=== PATIENT | female | born 1995 | race American Indian/Alaskan Native ===

== ENCOUNTER 2019-02-05 12:25 | Emergency (ER) | payer MEDICAID ==
--- NOTE | 2019-02-05 13:12 | Emergency Department Report ---
ED Female HPI - General Chief complaint: Vaginal Bleeding Stated complaint: VAGINAL BLEEDING Time Seen by Provider: 02/05/19 12:45 Source: patient Mode of arrival: Ambulatory Limitations: No Limitations - History of Present Illness Initial comments: 23-year-old female who presents to ED with vaginal bleeding that began last night. Patient states that she noticed large clots of blood that started last night. Patient states that she is not on any medication or contraceptive method. Patient states that her last menstrual cycle 01/14/2019. She states she usually gets normal menstrual cycle once a month. It has been very regular to bleeding started yesterday. She denies abdominal pain or pelvic pain, vaginal discharge, dysuria or nausea vomiting or diarrhea. MD Complaint: vaginal bleeding - Related Data Home Medications Medication Instructions Recorded Confirmed Last Taken No Known Home Medications [No 02/05/19 02/05/19 Unknown Reported Home Medications] Allergies Allergy/AdvReac Type Severity Reaction Status Date / Time No Known Allergies Allergy Unverified 02/05/19 12:27 ED Review of Systems ROS: Stated complaint: VAGINAL BLEEDING Other details as noted in HPI Comment: All other systems reviewed and negative ED Past Medical Hx - Past Medical History Previous Medical History?: Yes Hx Hypertension: Yes Additional medical history: Obesity - Surgical History Past Surgical History?: No - Social History Smoking Status: Current Every Day Smoker Substance Use Type: Marijuana - Medications Home Medications: Home Medications Medication Instructions Recorded Confirmed Last Taken Type No Known Home Medications [No 02/05/19 02/05/19 Unknown History Reported Home Medications] ED Physical Exam - General Limitations: No Limitations General appearance: alert, in no apparent distress - Head Head exam: Present: atraumatic, normocephalic - Eye Eye exam: Present: normal appearance - ENT ENT exam: Present: mucous membranes moist - Neck Neck exam: Present: normal inspection - Respiratory Respiratory exam: Present: normal lung sounds bilaterally. Absent: respiratory distress - Cardiovascular Cardiovascular Exam: Present: regular rate, normal rhythm. Absent: systolic murmur, diastolic murmur, rubs, gallop - GI/Abdominal GI/Abdominal exam: Present: soft, normal bowel sounds. Absent: distended, tenderness, guarding, rebound, mass, bruit - Extremities Exam Extremities exam: Present: normal inspection - Back Exam Back exam: Present: normal inspection - Neurological Exam Neurological exam: Present: alert, oriented X3 - Psychiatric Psychiatric exam: Present: normal affect, normal mood - Skin Skin exam: Present: warm, dry, intact, normal color. Absent: rash ED Course Vital Signs 02/05/19 02/05/19 02/05/19 12:27 15:00 15:20 Temperature 98.5 F Pulse Rate 96 H 88 Respiratory 18 18 18 Rate Blood Pressure 166/103 Blood Pressure 154/86 [Left] O2 Sat by Pulse 97 98 98 Oximetry ED Medical Decision Making - Lab Data Result diagrams: 02/05/19 13:15 Laboratory Last Values WBC 5.6 K/mm3 (4.5-11.0) 02/05/19 13:15 RBC 3.96 M/mm3 (3.65-5.03) 02/05/19 13:15 Hgb 11.3 gm/dl (10.1-14.3) 02/05/19 13:15 Hct 33.3 % (30.3-42.9) 02/05/19 13:15 MCV 84 fl (79-97) 02/05/19 13:15 MCH 29 pg (28-32) 02/05/19 13:15 MCHC 34 % (30-34) 02/05/19 13:15 RDW 14.8 % (13.2-15.2) 02/05/19 13:15 Plt Count 432 K/mm3 (140-440) 02/05/19 13:15 Lymph % (Auto) 39.2 % (13.4-35.0) H 02/05/19 13:15 [place] % (Auto) 10.4 % (0.0-7.3) H 02/05/19 13:15 Eos % (Auto) 3.1 % (0.0-4.3) 02/05/19 13:15 Baso % (Auto) 0.4 % (0.0-1.8) 02/05/19 13:15 Lymph # 2.2 K/mm3 (1.2-5.4) 02/05/19 13:15 [place] # 0.6 K/mm3 (0.0-0.8) 02/05/19 13:15 Eos # 0.2 K/mm3 (0.0-0.4) 02/05/19 13:15 Baso # 0.0 K/mm3 (0.0-0.1) 02/05/19 13:15 Seg Neutrophils % 46.9 % (40.0-70.0) 02/05/19 13:15 Seg Neutrophils # 2.6 K/mm3 (1.8-7.7) 02/05/19 13:15 HCG, Quant 469.3 mIU/mL (0-4) H 02/05/19 13:15 Urine Color Yellow (Yellow) 02/05/19 13:50 Urine Turbidity Slightly-cloudy (Clear) 02/05/19 13:50 Urine pH 5.0 (5.0-7.0) 02/05/19 13:50 Ur Specific [place] 1.023 (1.003-1.030) 02/05/19 13:50 Urine Protein <15 mg/dl mg/dL (Negative) 02/05/19 13:50 Urine Glucose (UA) Neg mg/dL (Negative) 02/05/19 13:50 Urine Ketones Neg mg/dL (Negative) 02/05/19 13:50 Urine Blood Lg (Negative) 02/05/19 13:50 Urine Nitrite Neg (Negative) 02/05/19 13:50 Urine Bilirubin Neg (Negative) 02/05/19 13:50 Urine Urobilinogen < 2.0 mg/dL (<2.0) 02/05/19 13:50 Ur Leukocyte Esterase Tr (Negative) 02/05/19 13:50 Urine WBC (Auto) 4.0 /HPF (0.0-6.0) 02/05/19 13:50 Urine RBC (Auto) 29.0 /HPF (0.0-6.0) 02/05/19 13:50 U Epithel Cells (Auto) 13.0 /HPF (0-13.0) 02/05/19 13:50 Urine Mucus Few /HPF 02/05/19 13:50 - Medical Decision Making 23-year-old female presents with vaginal bleeding with positive test. CBC within normal limits, quantitative 493. urinalysis is negative Discussed all findings with the patient. Discussed the patient is status very early and could be a failed . Discussed with the patient to follow-up with [facility] in 2-3 days for repeat quantitative. Patient has a nontender abdomen a pelvic. Discussed follow-up in 2-3 days Patient understands instructions and states the compliance. Critical care attestation.: If time is entered above; I have spent that time in minutes in the direct care of this critically ill patient, excluding procedure time. ED Disposition Clinical Impression: Vaginal bleeding, Positive blood test Disposition: TO HOME OR SELFCARE Is pt being admited?: No Does the pt Need Aspirin: No Condition: Stable Instructions: Spontaneous Miscarriage (ED), Threatened Miscarriage (ED) Additional Instructions: Make sure to follow up with the primary care physician as discussed. Oh up with [facility] as referred and 2-3 days for repeat blood test If you have any worsening symptoms or develop new symptoms please return to ED immediately. Referrals: [facility] [Provider Group] - 3-5 Days [facility] [Provider Group] - 3-5 Days [facility] [Provider Group] - 3-5 Days Forms: Work/School Release Form(ED) Time of Disposition: 14:42
[2019-02-05 14:02] LABS: Basophils % (Auto) 0.4 % (0.0-1.8); Eosinophils # (Auto) 0.2 K/mm3 (0.0-0.4); Eosinophils % (Auto) 3.1 % (0.0-4.3); Hematocrit 33.3 % (30.3-42.9); Hemoglobin 11.3 gm/dl (10.1-14.3); Lymphocytes # (Auto) 2.2 K/mm3 (1.2-5.4); Lymphocytes % (Auto) 39.2 % (13.4-35.0); Mean Corpuscular HGB Conc 34 % (30-34); Mean Corpuscular Volume 84 fl (79-97); Monocytes # (Auto) 0.6 K/mm3 (0.0-0.8); Monocytes % (Auto) 10.4 % (0.0-7.3); Platelet Count 432 K/mm3 (140-440); Red Blood Count 3.96 M/mm3 (3.65-5.03); Red Cell Distribution Width 14.8 % (13.2-15.2)
[2019-02-05 14:21] LABS: Bilirubin,Urine NEG (Negative); Blood,Urine LG (Negative); Color,Urine Yellow (Yellow); Mucus,Urine FEW /HPF; Protein,Urine <15 mg/dL mg/dL (Negative); Urobilinogen,Urine < 2.0 mg/dL (<2.0)
[2019-02-05 15:31] VITALS: BP 154/86
== END 2019-02-05 15:30 | disposition home or self-care (01) ==
LOC: ED 12:25
DX: Z32.01 Encounter for pregnancy test, result positive (principal); I10 Essential (primary) hypertension; F17.200 Nicotine dependence, unspecified, uncomplicated; F12.10 Cannabis abuse, uncomplicated
CPT/HCPCS: 36415; 81001; 84702; 85025; 99283

== ENCOUNTER 2019-09-07 15:45 | Emergency (ER) | payer MEDICAID ==
[2019-09-07 16:21] LABS: Bilirubin,Urine NEG (Negative); Blood,Urine NEG (Negative); Color,Urine Yellow (Yellow); HCG Qualitative,Urine Negative (Negative); Mucus,Urine FEW /HPF; Protein,Urine <15 mg/dL mg/dL (Negative); Urobilinogen,Urine < 2.0 mg/dL (<2.0)
[2019-09-07] MEDS ORDERED: IBUPROFEN 800 MG TAB PO ONE (19:30)
[2019-09-07] MEDS ORDERED: ONDANSETRON 4 MG ODT TAB PO ONE (19:30)
[2019-09-07 19:33] VITALS: BP 147/75
--- NOTE | 2019-09-07 20:21 | Emergency Department Report ---
ED Abdominal Pain HPI - General Chief Complaint: Abdominal Pain Stated Complaint: FEEL LIGHTHEADED Time Seen by Provider: 09/07/19 19:25 Source: patient Mode of arrival: Ambulatory Limitations: No Limitations - History of Present Illness Initial Comments: Ms. Mckeon is a 24-year-old -Mal[place]ian female who presents with left lower quadrant abdominal pain for over today. Pain described at 5/10 sharp achy. Pain is exacerbated by palpation and movement. There is no fever no chills. She states some nausea no vomiting. No back pain, no dysuria, no vaginal discharge, no vaginal bleeding. Patient denies fall ,injury ,or trauma. She is tolerating p.o. intake without increasing symptoms. MD Complaint: abdominal pain Onset/Timin -: hour(s) Location: LLQ Radiation: LLQ Severity scale (0 -10): 6 Quality: aching, sharp Consistency: constant Improves With: nothing Worsens With: movement Associated Symptoms: nausea. denies: vomiting, diarrhea, fever, chills, constipation - Related Data LMP Date: 08/07/19 Previous Rx's Medication Instructions Recorded Last Taken Type bisacodyL [Dulcolax suppos] 10 mg TX ONCE PRN #5 supp.rect 09/07/19 Unknown Rx polyethylene glycoL 3350 [Miralax 17 gm PO BID PRN #14 packet 09/07/19 Unknown Rx 3350] Allergies Allergy/AdvReac Type Severity Reaction Status Date / Time latex Allergy Hives Verified 09/07/19 15:49 ED Review of Systems ROS: Stated complaint: FEEL LIGHTHEADED Other details as noted in HPI Constitutional: denies: chills, fever Eyes: denies: eye pain, eye discharge, vision change ENT: denies: ear pain, throat pain Respiratory: denies: cough, shortness of breath, wheezing Cardiovascular: as per HPI Endocrine: no symptoms reported Gastrointestinal: abdominal pain, nausea. denies: vomiting, diarrhea, constipation, melena Genitourinary: denies: urgency, dysuria, frequency, hematuria, discharge Musculoskeletal: denies: back pain Skin: denies: rash, lesions Neurological: denies: headache, weakness, paresthesias Psychiatric: denies: anxiety, depression Hematological/Lymphatic: denies: easy bleeding, easy bruising ED Past Medical Hx - Past Medical History Hx Hypertension: Yes Additional medical history: Obesity - Surgical History Past Surgical History?: No - Social History Smoking Status: Never Smoker Substance Use Type: None - Medications Home Medications: Home Medications Medication Instructions Recorded Confirmed Last Taken Type bisacodyL [Dulcolax suppos] 10 mg TX ONCE PRN #5 supp.rect 09/07/19 Unknown Rx polyethylene glycoL 3350 [Miralax 17 gm PO BID PRN #14 packet 09/07/19 Unknown Rx 3350] ED Physical Exam - General Limitations: No Limitations General appearance: alert, in no apparent distress - Head Head exam: Present: atraumatic, normocephalic - Eye Eye exam: Present: normal appearance, EOMI Pupils: Present: normal accommodation - ENT ENT exam: Present: mucous membranes moist - Neck Neck exam: Present: normal inspection, full ROM. Absent: tenderness - Respiratory Respiratory exam: Present: normal lung sounds bilaterally. Absent: respiratory distress, wheezes, stridor, chest wall tenderness - Cardiovascular Cardiovascular Exam: Present: regular rate, normal rhythm, normal heart sounds. Absent: systolic murmur, diastolic murmur, rubs, gallop - GI/Abdominal GI/Abdominal exam: Present: soft, tenderness (LLQ ), normal bowel sounds. Absent: guarding, rebound, rigid, bruit, hernia - Rectal Rectal exam: Present: deferred - Extremities Exam Extremities exam: Present: normal inspection, full ROM, normal capillary refill. Absent: tenderness - Back Exam Back exam: Present: normal inspection, full ROM. Absent: tenderness, CVA tender ness (R), CVA tenderness (L), vertebral tenderness, rash noted - Neurological Exam Neurological exam: Present: alert, oriented X3, CN II-XII intact, normal gait - Psychiatric Psychiatric exam: Present: normal affect, normal mood - Skin Skin exam: Present: warm, dry, intact, normal color. Absent: rash ED Course Vital Signs 09/07/19 09/07/19 15:50 19:31 Temperature 98.3 F Pulse Rate 102 H 95 H Respiratory 18 18 Rate Blood Pressure 160/103 147/75 O2 Sat by Pulse 100 100 Oximetry ED Medical Decision Making - Lab Data Result diagrams: 09/07/19 19:45 09/07/19 19:45 Labs 09/07/19 09/07/19 09/07/19 16:02 19:45 19:45 WBC 6.5 RBC 4.28 Hgb 11.6 Hct 35.4 MCV 83 MCH 27 L MCHC 33 RDW 14.5 Plt Count 431 Lymph % (Auto) 42.8 H [place] % (Auto) 12.1 H Eos % (Auto) 2.4 Baso % (Auto) 0.2 Lymph # 2.8 [place] # 0.8 Eos # 0.2 Baso # 0.0 Seg Neutrophils % 42.5 Seg Neutrophils # 2.8 Sodium 141 Potassium 4.2 Chloride 103.9 Carbon Dioxide 22 Anion Gap 19 BUN 9 Creatinine 0.4 L Estimated GFR > 60 BUN/Creatinine Ratio 23 Glucose 92 Calcium 9.5 Total Bilirubin < 0.20 AST 19 ALT 8 Alkaline Phosphatase 65 Total Protein 7.5 Albumin 4.0 Albumin/Globulin Ratio 1.1 Lipase 18 HCG, Qual Urine Color Yellow Urine Turbidity Clear Urine pH 6.0 Ur Specific [place] 1.024 Urine Protein <15 mg/dl Urine Glucose (UA) Neg Urine Ketones Neg Urine Blood Neg Urine Nitrite Neg Ur Reducing Substances Not Reportable Urine Bilirubin Neg Urine Ictotest Not Reportable Urine Urobilinogen < 2.0 Ur Leukocyte Esterase Tr Urine WBC (Auto) 3.0 Urine RBC (Auto) 1.0 U Epithel Cells (Auto) 8.0 Urine Mucus Few Urine HCG, Qual Negative 09/07/19 19:45 WBC RBC Hgb Hct MCV MCH MCHC RDW Plt Count Lymph % (Auto) [place] % (Auto) Eos % (Auto) Baso % (Auto) Lymph # [place] # Eos # Baso # Seg Neutrophils % Seg Neutrophils # Sodium Potassium Chloride Carbon Dioxide Anion Gap BUN Creatinine Estimated GFR BUN/Creatinine Ratio Glucose Calcium Total Bilirubin AST ALT Alkaline Phosphatase Total Protein Albumin Albumin/Globulin Ratio Lipase HCG, Qual Negative Urine Color Urine Turbidity Urine pH Ur Specific [place] Urine Protein Urine Glucose (UA) Urine Ketones Urine Blood Urine Nitrite Ur Reducing Substances Urine Bilirubin Urine Ictotest Urine Urobilinogen Ur Leukocyte Esterase Urine WBC (Auto) Urine RBC (Auto) U Epithel Cells (Auto) Urine Mucus Urine HCG, Qual - Radiology Data Radiology results: report reviewed, image reviewed Findings Reporting MD: Sarabjit Andujar Dictation Time: September 07, 2019 21:19 Stay Cutter: Not available [facility] Super[facility] Date: ABDOMEN 1 VIEW(S) INDICATION / CLINICAL INFORMATION: abd pain LLQ. COMPARISON: None available. FINDINGS: TUBES / LINES: None. BOWEL GAS PATTERN/EXTRALUMINAL GAS: No dilated loops of bowel. Moderate constipation. No pneumatosis or secondary signs of free air. ADDITIONAL FINDINGS: No significant additional findings. IMPRESSION: 1. Moderate constipation without acute abnormality. Signer Name: Sarabjit Andujar MD Signed: 09/07/2019 9:19 PM Workstation Name: [id number] - Medical Decision Making KUB demonstrates moderate constipation plan MiraLAX Dulcolax suppositories hydrate as directed follow-up with primary care doctor in 2 to 3 days. Critical care attestation.: If time is entered above; I have spent that time in minutes in the direct care of this critically ill patient, excluding procedure time. ED Disposition Clinical Impression: Constipation Qualifiers: Constipation type: unspecified constipation type Qualified Code(s): K59.00 - Constipation, unspecified Disposition: TO HOME OR SELFCARE Is pt being admited?: No Does the pt Need Aspirin: No Condition: Stable Instructions: High Fiber Diet (ED), Constipation (ED) Prescriptions: bisacodyL [Dulcolax suppos] 10 mg TX ONCE PRN #5 supp.rect PRN Reason: Constipation polyethylene glycoL 3350 [Miralax 3350] 17 gm PO BID PRN #14 packet PRN Reason: Constipation Referrals: ANAHY SINCLAIR MD [Staff Physician] - 3-5 Days Forms: Work/School Release Form(ED) Time of Disposition: 22:48
[2019-09-07 21:31] LABS: Basophils % (Auto) 0.2 % (0.0-1.8); Eosinophils # (Auto) 0.2 K/mm3 (0.0-0.4); Eosinophils % (Auto) 2.4 % (0.0-4.3); Hematocrit 35.4 % (30.3-42.9); Hemoglobin 11.6 gm/dl (10.1-14.3); Lymphocytes # (Auto) 2.8 K/mm3 (1.2-5.4); Lymphocytes % (Auto) 42.8 % (13.4-35.0); Mean Corpuscular HGB Conc 33 % (30-34); Mean Corpuscular Volume 83 fl (79-97); Monocytes # (Auto) 0.8 K/mm3 (0.0-0.8); Monocytes % (Auto) 12.1 % (0.0-7.3); Platelet Count 431 K/mm3 (140-440); Red Blood Count 4.28 M/mm3 (3.65-5.03); Red Cell Distribution Width 14.5 % (13.2-15.2)
[2019-09-07 21:48] LABS: Alanine Aminotransferase 8 units/L (7-56); BUN/Creatinine Ratio 23; Blood Urea Nitrogen 9 mg/dL (7-17); Calcium 9.5 mg/dL (8.4-10.2); Hemolysis Index 7
--- NOTE | 2019-09-07 22:24 | XRay Report ---
ABDOMEN 1 VIEW(S) INDICATION / CLINICAL INFORMATION: abd pain LLQ. COMPARISON: None available. FINDINGS: TUBES / LINES: None. BOWEL GAS PATTERN/EXTRALUMINAL GAS: No dilated loops of bowel. Moderate constipation. No pneumatosis or secondary signs of free air. ADDITIONAL FINDINGS: No significant additional findings. IMPRESSION: 1. Moderate constipation without acute abnormality. Signer Name: Sarabjit Andujar MD Signed: 09/07/2019 10:19 PM Workstation Name: [id number]
== END 2019-09-07 22:57 | disposition home or self-care (01) ==
LOC: ED 15:45
DX: K59.00 Constipation, unspecified (principal); I10 Essential (primary) hypertension; E66.9 Obesity, unspecified; Z68.42 Body mass index [BMI] 45.0-49.9, adult; Z79.899 Other long term (current) drug therapy; Z91.040 Latex allergy status
CPT/HCPCS: 36415; 74018; 80053; 81001; 81025; 83690; 84703; 85025; Q0162

== ENCOUNTER 2020-10-30 13:17 | Emergency (ER) | payer MEDICAID ==
[2020-10-30] MEDS ORDERED: AZITHROMYCIN/NS 500 MG/250 ML 500 MG/250 ML BAG IV ONE (13:42)
[2020-10-30] MEDS ORDERED: SODIUM CHLORIDE 0.9% 1000 ML IV SOLN IV ONE (13:42)
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
[2020-10-30 14:53] LABS: Basophils % (Auto) 0.1 % (0.0-1.8); Hematocrit 38.8 % (30.3-42.9); Hemoglobin 12.8 gm/dl (10.1-14.3); Lymphocytes % (Auto) 16.9 % (13.4-35.0); Mean Corpuscular HGB Conc 33 % (30-34); Mean Corpuscular Volume 87 fl (79-97); Monocytes # (Auto) 0.7 K/mm3 (0.0-0.8); Monocytes % (Auto) 11.5 % (0.0-7.3); Platelet Count 438 K/mm3 (140-440); Red Blood Count 4.46 M/mm3 (3.65-5.03); Red Cell Distribution Width 14.7 % (13.2-15.2)
[2020-10-30 14:54] LABS: Alanine Aminotransferase 10 units/L (7-56); Albumin 3.5 g/dL (3.9-5); Blood Urea Nitrogen 10 mg/dL (7-17); Calcium 9.5 mg/dL (8.4-10.2); Hemolysis Index 5
[2020-10-30 14:56] LABS: BUN/Creatinine Ratio 14
[2020-10-30] MEDS ORDERED: SODIUM CHLORIDE 0.9% 1000 ML 1,000 ML IV ONE (15:09)
[2020-10-30] MEDS ORDERED: IBUPROFEN 800 MG TAB PO ONE (15:09)
--- NOTE | 2020-10-30 15:48 | XRay Report ---
CHEST 1 VIEW 10/30/2020 2:39 PM INDICATION / CLINICAL INFORMATION: SOB. COMPARISON: None available. FINDINGS: SUPPORT DEVICES: None. HEART / MEDIASTINUM: The heart size and pulmonary vasculature are normal. LUNGS / PLEURA: Lung volumes are low. There is mild bibasilar atelectasis, greater on the left. No pn eumothorax. ADDITIONAL FINDINGS: No significant additional findings. IMPRESSION: Low lung volumes with mild bibasilar subsegmental atelectasis, left greater than right. Signer Name: Fercho Corey MD Signed: 10/30/2020 3:43 PM Workstation Name: [id number]
[2020-10-30] MEDS ORDERED: ALBUTEROL 2.5 MG/3 ML NEBU IH ONE (15:49)
[2020-10-30] MEDS ORDERED: dexAMETHasone 4 MG/ML VIAL IV ONE (15:49)
[2020-10-30 16:13] LABS: Bacteria,Urine 1+ /HPF (Negative); Bilirubin,Urine NEG (Negative); Blood,Urine LG (Negative); Color,Urine Amber (Yellow); Mucus,Urine FEW /HPF
[2020-10-30 16:23] LABS: HCG Qualitative,Urine Positive (Negative)
[2020-10-30 16:27] VITALS: BP 134/88
== END 2020-10-30 18:18 | disposition home or self-care (01) ==
LOC: ED 13:17
DX: J06.9 Acute upper respiratory infection, unspecified (principal); N39.0 Urinary tract infection, site not specified; E66.01 Morbid (severe) obesity due to excess calories; I10 Essential (primary) hypertension; J45.909 Unspecified asthma, uncomplicated; Z33.1 Pregnant state, incidental; Z20.822 Contact with and (suspected) exposure to COVID-19; Z68.42 Body mass index [BMI] 45.0-49.9, adult; Z79.2 Long term (current) use of antibiotics; Z79.899 Other long term (current) drug therapy; Z91.040 Latex allergy status
CPT/HCPCS: 36415; 71045; 80053; 81001; 81025; 82140; 85025; 87040; 87086; 94640; 96365; 96375; 99284; J0456; J1100; J7030

== ENCOUNTER 2020-10-31 06:55 | Emergency (ER) | payer MEDICAID ==
[2020-10-31] MEDS ORDERED: SODIUM CHLORIDE 0.9% 1000 ML 1,000 ML IV ONE (08:42)
--- NOTE | 2020-10-31 08:42 | Emergency Department Report ---
ED Female HPI - General Chief complaint: Vaginal Bleeding Stated complaint: ABD PAIN//BLEEDING Time Seen by Provider: 10/31/20 08:36 Source: patient Mode of arrival: Ambulatory Limitations: No Limitations - History of Present Illness Initial comments: Patient is a 25-year-old -[place] female that comes to the emergency room today with reports of vaginal bleeding. Patient was in the ER yesterday and treated as a PUI. She came to the ER yesterday complaining of shortness of breath and was febrile. Refer to EMR. It was an incidental finding that the patient was noted to be . In fact she had signed her x-ray permission form stating that she was not in order to get her chest x-ray yesterday. At that time patient's respiratory status required immediate attention for she has a history of asthma and was febrile and hypoxic. She ended up responding to treatment and was discharged home. She woke up this morning noted to have some vaginal bleeding so she returns to the ER. Patient is ambulatory on arrival to [facility]. She is still coughing. She is not febrile today. She does have some residual tachycardia. However, this is probably normal for her. She is obese and has been tachycardic on all encounters in the emergency room. She denies any chest pain today. She did not get her medications filled from yesterday's visit. So she has not gotten her antibiotics or her nebulizer treatments. Patient denies any vaginal discharge. She denies any abdominal pain. She states she is just cramping as she would during her periods. She has irregular menses. Patient has been once before but lost the early in the to miscarriage. MD Complaint: vaginal bleeding -: Sudden Quality: cramping Consistency: intermittent Improves with: none Worsens with: none Are you Now?: Yes Associated Symptoms: vaginal bleeding - Related Data Sexually active: Yes : 2 Para: 0 A: 1 Previous Rx's Medication Instructions Recorded Last Taken Type ALBUTEROL NEB's [Proventil 0.083% 2.5 mg IH TID PRN #1 box 10/30/20 Unknown Rx NEBS] Albuterol Mdi (or & Nicu Only) 2 puff IH QID PRN #1 inhalation 10/30/20 Unknown Rx [ProAir HFA Inhaler] Azithromycin [Zithromax Z-GEOFF] 250 mg PO DAILY #6 tablet 10/30/20 Unknown Rx Cetirizine HCl [ZyrTEC] 10 mg PO DAILY #30 capsule 10/30/20 Unknown Rx Fluticasone [Flonase] 1 spray NS QDAY #1 bottle 10/30/20 Unknown Rx predniSONE [Deltasone] 20 mg PO DAILY #5 tablet 10/30/20 Unknown Rx Allergies Allergy/AdvReac Type Severity Reaction Status Date / Time latex Allergy Hives Verified 10/31/20 08:23 ED Review of Systems ROS: Stated complaint: ABD PAIN//BLEEDING Other details as noted in HPI Comment: All other systems reviewed and negative ED Past Medical Hx - Past Medical History Previous Medical History?: Yes Hx Hypertension: Yes Hx Asthma: Yes Additional medical history: Obesity - Surgical History Past Surgical History?: No - Family History Family history: no significant - Social History Smoking Status: Never Smoker Substance Use Type: None - Medications Home Medications: Home Medications Medication Instructions Recorded Confirmed Last Taken Type ALBUTEROL NEB's [Proventil 0.083% 2.5 mg IH TID PRN #1 box 10/30/20 Unknown Rx NEBS] Albuterol Mdi (or & Nicu Only) 2 puff IH QID PRN #1 inhalation 10/30/20 Unknown Rx [ProAir HFA Inhaler] Azithromycin [Zithromax Z-GEOFF] 250 mg PO DAILY #6 tablet 10/30/20 Unknown Rx Cetirizine HCl [ZyrTEC] 10 mg PO DAILY #30 capsule 10/30/20 Unknown Rx Fluticasone [Flonase] 1 spray NS QDAY #1 bottle 10/30/20 Unknown Rx predniSONE [Deltasone] 20 mg PO DAILY #5 tablet 10/30/20 Unknown Rx ED Physical Exam - General Limitations: No Limitations General appearance: alert, in no apparent distress - Head Head exam: Present: atraumatic, normocephalic - Eye Eye exam: Present: normal appearance - ENT ENT exam: Present: mucous membranes moist - Neck Neck exam: Present: normal inspection - Respiratory Respiratory exam: Present: normal lung sounds bilaterally. Absent: respiratory distress - Cardiovascular Cardiovascular Exam: Present: regular rate, normal rhythm. Absent: systolic murmur, diastolic murmur, rubs, gallop - GI/Abdominal GI/Abdominal exam: Present: soft, normal bowel sounds - Extremities Exam Extremities exam: Present: normal inspection - Back Exam Back exam: Present: normal inspection - Neurological Exam Neurological exam: Present: alert, oriented X3 - Psychiatric Psychiatric exam: Present: normal affect, normal mood - Skin Skin exam: Present: warm, dry, intact, normal color. Absent: rash ED Course Vital Signs 10/31/20 10/31/20 08:30 13:25 Temperature 98.4 F Pulse Rate 118 H Respiratory 20 16 Rate Blood Pressure 142/84 O2 Sat by Pulse 91 Oximetry ED Medical Decision Making - Lab Data Result diagrams: 10/31/20 08:34 10/31/20 10:14 - Radiology Data Radiology results: report reviewed, image reviewed SEE REPORT - Medical Decision Making Labs 10/31/20 10/31/20 10/31/20 08:34 08:34 10:14 WBC 7.3 RBC 4.15 Hgb 12.4 Hct 35.2 MCV 85 MCH 30 MCHC 35 H RDW 14.9 Plt Count 468 H Sodium 143 Potassium 4.0 Chloride 104.9 Carbon Dioxide 28 Anion Gap 14 BUN 12 Creatinine 0.6 Estimated GFR > 60 BUN/Creatinine Ratio 20 Glucose 97 Calcium 9.3 HCG, Quant 202.9 H Blood Type Ord Rhogam Gestat Weeks 10/31/20 10:14 WBC RBC Hgb Hct MCV MCH MCHC RDW Plt Count Sodium Potassium Chloride Carbon Dioxide Anion Gap BUN Creatinine Estimated GFR BUN/Creatinine Ratio Glucose Calcium HCG, Quant Blood Type A POSITIVE Ord Rhogam Gestat Weeks Rh pos Vital Signs 10/31/20 08:30 Temperature 98.4 F Pulse Rate 118 H Respiratory 20 Rate Blood Pressure 142/84 O2 Sat by Pulse 91 Oximetry PT HERE YESTERDAY PUI- SHE DID NOT GET HER MEDS FILLED YET SHE HAS BEEN COUGHING IN ER NEB GIVEN SO THAT SHE COULD LIE FLAT FOR PELVIC US NOTED HCG NOTED LABS NOTED RH POS UNCLEAR LMP - KNOWN TO BE IRREGULAR. PT CURRENTLY BEING TX WITH AZITHRO PUI TODAY LULU GIVEN HER 1GM IV ROCEPHIN -- SINCE SHE HAS NOT GOT YESTERDAYS MEDS FILLED AND HAS A UTI C/S STILL PENDING I have done a pelvic exam. There was nothing but blood in the office or the vaginal vault. No adnexal tenderness GC PENDING CALL PT IF POS AND NEEDS TREATMENT THE SPECIMEN LIKELY CONTAMINATED BY BLOOD GIVEN HER VAGINAL BLEEDING SHE HAS HAD NO DISCHARGE - I'M LESS CONCERNED FOR STI SHE HAS ALSO BEEN GIVEN FOLLOW UP FOR OBGYN WET PREG NEG PT BEING DC HOME WITH DC PLAN OF CARE INCLUDING 1. TAKING HER MEDS GIVEN YESTERDAY - SEE D/C PACKET FROM YESTERDAY 2. FOLLOWING UP WITH OBGYN FOR REPEAT HCG AND ONGOING CARE. - Differential Diagnosis RO AB Critical care attestation.: If time is entered above; I have spent that time in minutes in the direct care of this critically ill patient, excluding procedure time. ED Disposition Clinical Impression: URI (upper respiratory infection), Morbid obesity, Asthma, Vaginal bleeding during , UTI (urinary tract infection) Disposition: DC- TO HOME OR SELFCARE Is pt being admited?: No Does the pt Need Aspirin: No Condition: Stable Instructions: Asthma (ED) Additional Instructions: GET YOUR MEDS FILLED FROM YESTERDAY AND TAKE THEM SEE YESTERDAYS DISCHARGE INSTRUCTIONS AND FOLLOW THEM YOU WILL NEED TO SEE AN OBGYN WEDNESDAY TO HAVE LABS RECHECKED REFERRAL BELOW TELL THEM YOU ARE AND HAVE HAD VAGINAL BLEEDING THEY WILL DO HCG LEVEL AND COMPARE TO TODAY DO NOT PUT ANYTHING IN VAGINA NO SEX TYLENOL FOR PAIN Referrals: JIMMIE JOHN MD [Staff Physician] - 3-5 Days CHARMAINE BHARDWAJ MD [Staff Physician] - 3-5 Days Time of Disposition: 13:02
--- NOTE | 2020-10-31 09:48 | Ultrasound Report ---
FIRSTTRIMESTER OBSTETRIC ULTRASOUND ULTRASOUND OB TRANSVAGINAL HISTORY: Vaginal bleeding during COMPARISON: None. TECHNIQUE: Routine transabdominal OB ultrasound performed. FINDINGS: The uterus is anteverted and measures 6.4 x 4.0 x 4.6 cm. No obvious uterine fibroid disease. The endometrial stripe measures 1.2 cm. No convincing normal-appearing gestational sac is identified at this time. There is an ill-defined rounded echogenic area in the lower uterine segment measuring u p to 1 cm. The etiology of this is unclear although products of conception or thrombus cannot be excl uded. The right ovary measures 2.7 x 1.5 x 2.4 cm. The left ovary measures 1.7 x 1.4 x 1.5 cm. No adnexal l esion is detected. No free pelvic fluid. IMPRESSION No normal intrauterine is detected. There is ill-defined echogenic material in the lower endometrial canal measuring up to 1 cm in diamet er. The etiology of this is unclear. This could represent blood products. Impending could al so be considered. Please correlate with the patient's clinical presentation. Close interval follow-up is recommended. Signer Name: Evan Maria Jr, MD Signed: 10/31/2020 9:43 AM Workstation Name: [id number]
[2020-10-31 10:10] LABS: Hematocrit 35.2 % (30.3-42.9); Hemoglobin 12.4 gm/dl (10.1-14.3); Mean Corpuscular HGB Conc 35 % (30-34); Mean Corpuscular Volume 85 fl (79-97); Platelet Count 468 K/mm3 (140-440); Red Blood Count 4.15 M/mm3 (3.65-5.03); Red Cell Distribution Width 14.9 % (13.2-15.2)
[2020-10-31 11:00] LABS: Blood Urea Nitrogen 12 mg/dL (7-17); Calcium 9.3 mg/dL (8.4-10.2); Hemolysis Index 0
[2020-10-31 11:09] LABS: BUN/Creatinine Ratio 20
[2020-10-31] MEDS ORDERED: ALBUTEROL 2.5 MG/3 ML NEBU IH ONE (11:46)
[2020-10-31] MEDS ORDERED: cefTRIAXone/NS 1 GM/50 ML 1 GM/50 ML BAG IV ONE (13:04)
[2020-10-31] MEDS ORDERED: ACETAMINOPHEN 500 MG TAB PO ONE (13:10)
[2020-10-31 14:09] LABS: Bilirubin,Urine NEG (Negative); Blood,Urine LG (Negative); Color,Urine Yellow (Yellow); Mucus,Urine FEW /HPF
[2020-10-31 15:16] VITALS: BP 140/80
== END 2020-10-31 15:16 | disposition home or self-care (01) ==
LOC: ED 06:55
DX: O23.40 Unspecified infection of urinary tract in pregnancy, unspecified trimester (principal); O20.8 Other hemorrhage in early pregnancy; O99.519 Diseases of the respiratory system complicating pregnancy, unspecified trimester; O99.210 Obesity complicating pregnancy, unspecified trimester; J06.9 Acute upper respiratory infection, unspecified; J45.909 Unspecified asthma, uncomplicated; E66.01 Morbid (severe) obesity due to excess calories; I10 Essential (primary) hypertension; Z3A.01 Less than 8 weeks gestation of pregnancy; Z79.2 Long term (current) use of antibiotics; Z79.899 Other long term (current) drug therapy; Z91.040 Latex allergy status
CPT/HCPCS: 36415; 76801; 76817; 80048; 81001; 84702; 85027; 86900; 86901; 87210; 94640; 96361; 96365; 99284; J0696; J7030; 87591; 94644

== ENCOUNTER 2021-05-24 18:07 | Emergency (ER) | payer MEDICAID ==
[2021-05-24 20:37] VITALS: BP 147/84
[2021-05-24 21:29] LABS: Bilirubin,Urine NEG (Negative); Blood,Urine NEG (Negative); Color,Urine Yellow (Yellow); Mucus,Urine FEW /HPF; Protein,Urine <15 mg/dL mg/dL (Negative); Urobilinogen,Urine < 2.0 mg/dL (<2.0)
[2021-05-24 21:43] LABS: HCG Qualitative,Urine Negative (Negative)
[2021-05-24 21:57] LABS: Basophils # (Auto) 0.1 K/mm3 (0.0-0.1); Basophils % (Auto) 0.8 % (0.0-1.8); Eosinophils # (Auto) 0.2 K/mm3 (0.0-0.4); Eosinophils % (Auto) 2.8 % (0.0-4.3); Hematocrit 36.7 % (30.3-42.9); Hemoglobin 12.2 gm/dl (10.1-14.3); Lymphocytes # (Auto) 2.6 K/mm3 (1.2-5.4); Lymphocytes % (Auto) 43.4 % (13.4-35.0); Mean Corpuscular HGB Conc 33 % (30-34); Mean Corpuscular Volume 86 fl (79-97); Monocytes # (Auto) 0.6 K/mm3 (0.0-0.8); Platelet Count 420 K/mm3 (140-440); Red Blood Count 4.28 M/mm3 (3.65-5.03); Red Cell Distribution Width 14.2 % (13.2-15.2)
[2021-05-24 22:20] LABS: Alanine Aminotransferase 7 units/L (7-56); Albumin 3.8 g/dL (3.9-5); Blood Urea Nitrogen 11 mg/dL (7-17); Calcium 9.4 mg/dL (8.4-10.2); Hemolysis Index 5
[2021-05-24 22:23] LABS: BUN/Creatinine Ratio 18
--- NOTE | 2021-05-24 22:32 | Emergency Department Report ---
ED Abdominal Pain HPI - General Chief Complaint: Abdominal Pain Stated Complaint: ABDOMINAL PAIN Time Seen by Provider: 05/24/21 20:54 Source: patient Mode of arrival: Ambulatory Limitations: No Limitations - History of Present Illness Initial Comments: 25-year-old female with past medical history of hypertension and asthma presents to the emergency department for evaluation of 1 day history of worsening abdominal pain. She states that pain is worse with bending and standing, describes the pain as a sharp pain mostly in the right lower and left lower quadrant. She denies fever, nausea, diarrhea, dysuria, and anorexia. She states that at its worst pain is 8 out of 10. Last menstrual. May 05, 2021. She also request refill of albuterol inhaler and nebulizer solution. She states that over the past few days she has had to use both shortness of breath is improved denies wheezing but just would like refill because she has ran out. MD Complaint: abdominal pain -: days(s) (1) Location: LUQ, RUQ Radiation: none Migration to: no migration Severity: moderate Severity scale (0 -10): 8 Quality: cramping, aching Consistency: intermittent Improves With: nothing Worsens With: movement Associated Symptoms: denies: nausea, vomiting, diarrhea, fever, chills, dysuria, hematemesis, hematochezia, melena, hematuria, anorexia, syncope - Related Data LMP Date: 05/05/21 Previous Rx's Medication Instructions Recorded Last Taken Type ALBUTEROL NEB's [Proventil 0.083% 2.5 mg IH TID PRN #1 box 10/30/20 Unknown Rx NEBS] Albuterol Mdi (or & Nicu Only) 2 puff IH QID PRN #1 inhalation 10/30/20 Unknown Rx [ProAir HFA Inhaler] Azithromycin [Zithromax Z-GEOFF] 250 mg PO DAILY #6 tablet 10/30/20 Unknown Rx Cetirizine HCl [ZyrTEC] 10 mg PO DAILY #30 capsule 10/30/20 Unknown Rx Fluticasone [Flonase] 1 spray NS QDAY #1 bottle 10/30/20 Unknown Rx predniSONE [Deltasone] 20 mg PO DAILY #5 tablet 10/30/20 Unknown Rx Albuterol Sulfate [Albuterol 0.63% 0.63 mg IH TID PRN #30 ml 05/24/21 Unknown Rx NEBS] Albuterol Sulfate [Proventil Hfa] 6.7 gm IH Q6HR PRN #1 inh 05/24/21 Unknown Rx Nitrofurantoin [place]/M-Cryst 100 mg PO Q12HR 7 Days #14 capsule 05/24/21 Unknown Rx [Macrobid CAP] Allergies Allergy/AdvReac Type Severity Reaction Status Date / Time latex Allergy Hives Verified 10/31/20 08:23 ED Review of Systems ROS: Stated complaint: ABDOMINAL PAIN Other details as noted in HPI Comment: All other systems reviewed and negative Constitutional: denies: chills, fever, malaise, weakness Eyes: denies: eye pain ENT: denies: ear pain Respiratory: denies: cough, shortness of breath, SOB with exertion, SOB at rest, wheezing Cardiovascular: denies: chest pain, palpitations, dyspnea on exertion, orthopnea, edema, paroxysmal nocturnal dyspnea Endocrine: denies: no symptoms reported Gastrointestinal: abdominal pain, nausea, vomiting. denies: diarrhea, hematemesis, melena, hematochezia Genitourinary: denies: urgency, dysuria, frequency, discharge, abnormal menses Skin: denies: rash Neurological: denies: headache, weakness Psychiatric: denies: anxiety ED Past Medical Hx - Past Medical History Hx Hypertension: Yes Hx Asthma: Yes Additional medical history: Obesity - Social History Smoking Status: Never Smoker Substance Use Type: None - Medications Home Medications: Home Medications Medication Instructions Recorded Confirmed Last Taken Type ALBUTEROL NEB's [Proventil 0.083% 2.5 mg IH TID PRN #1 box 10/30/20 Unknown Rx NEBS] Albuterol Mdi (or & Nicu Only) 2 puff IH QID PRN #1 inhalation 10/30/20 Unknown Rx [ProAir HFA Inhaler] Azithromycin [Zithromax Z-GEOFF] 250 mg PO DAILY #6 tablet 10/30/20 Unknown Rx Cetirizine HCl [ZyrTEC] 10 mg PO DAILY #30 capsule 10/30/20 Unknown Rx Fluticasone [Flonase] 1 spray NS QDAY #1 bottle 10/30/20 Unknown Rx predniSONE [Deltasone] 20 mg PO DAILY #5 tablet 10/30/20 Unknown Rx Albuterol Sulfate [Albuterol 0.63% 0.63 mg IH TID PRN #30 ml 05/24/21 Unknown Rx NEBS] Albuterol Sulfate [Proventil Hfa] 6.7 gm IH Q6HR PRN #1 inh 05/24/21 Unknown Rx Nitrofurantoin [place]/M-Cryst 100 mg PO Q12HR 7 Days #14 capsule 05/24/21 Unknown Rx [Macrobid CAP] ED Physical Exam - General Limitations: No Limitations General appearance: alert, in no apparent distress - Head Head exam: Present: atraumatic, normocephalic - Eye Eye exam: Present: normal appearance. Absent: conjunctival injection - Neck Neck exam: Present: normal inspection - Respiratory Respiratory exam: Present: normal lung sounds bilaterally. Absent: respiratory distress, wheezes, rales, rhonchi, chest wall tenderness, accessory muscle use - Cardiovascular Cardiovascular Exam: Present: regular rate, normal heart sounds - GI/Abdominal GI/Abdominal exam: Present: soft, distended, tenderness (To right lower and left lower quadrant.), normal bowel sounds. Absent: guarding, rebound, rigid - Extremities Exam Extremities exam: Present: normal inspection - Back Exam Back exam: Present: normal inspection, full ROM. Absent: tenderness, CVA tenderness (R), CVA tenderness (L) - Neurological Exam Neurological exam: Present: alert, oriented X3 - Psychiatric Psychiatric exam: Present: normal affect, normal mood - Skin Skin exam: Present: warm, dry, intact, normal color ED Course Vital Signs 05/24/21 05/24/21 20:12 20:24 Temperature 98.6 F Pulse Rate 89 85 Respiratory 20 Rate Blood Pressure 153/94 147/84 O2 Sat by Pulse 100 100 Oximetry ED Medical Decision Making - Lab Data Result diagrams: 05/24/21 21:15 05/24/21 21:15 - Radiology Data 25-year-old female with past medical history of hypertension and asthma presents to the emergency department for evaluation of 1 day history of worsening abdomi nal pain. She states that pain is worse with bending and standing, describes the pain as a sharp pain mostly in the right lower and left lower quadrant. She denies fever, nausea, diarrhea, dysuria, and anorexia. She states that at its worst pain is 8 out of 10. Last menstrual. May 05, 2021. She also request refill of albuterol inhaler and nebulizer solution. She states that over the past few days she has had to use both shortness of breath is improved denies wheezing but just would like refill because she has ran out. Urine positive for urinary tract infection. No gross abnormalities in blood work, WBC within normal limits. Patient will be treated with 7-day course of Macrobid for urinary tract infection. She was encouraged to take medications as prescribed and follow-up with primary care provider if no improvement or worsening symptoms. She verbalized understanding of and agreement with plan of care. Critical care attestation.: If time is entered above; I have spent that time in minutes in the direct care of this critically ill patient, excluding procedure time. ED Disposition Clinical Impression: Medication refill UTI (urinary tract infection) Qualifiers: Urinary tract infection type: acute cystitis Hematuria presence: without hematuria Qualified Code(s): N30.00 - Acute cystitis without hematuria Disposition: HOME / SELF CARE / HOMELESS Is pt being admited?: No Does the pt Need Aspirin: No Condition: Stable Instructions: Urinary Tract Infection, Adult, Fhyw-of-Lldy, Abdominal Pain (ED) Additional Instructions: Take medications as prescribed. Drink plenty of fluids. Follow-up with primary care provider if no improvement or worsening symptoms. Prescriptions: Albuterol Sulfate [Albuterol 0.63% NEBS] 0.63 mg IH TID PRN #30 ml PRN Reason: Wheezing Nitrofurantoin [place]/M-Cryst [Macrobid CAP] 100 mg PO Q12HR 7 Days #14 capsule Albuterol Sulfate [Proventil Hfa] 6.7 gm IH Q6HR PRN #1 inh PRN Reason: Wheezing Referrals: PRIMARY CARE, [Primary Care Provider] - 3-5 Days Forms: Work/School Release Form(ED) Time of Disposition: 22:31
== END 2021-05-24 23:45 | disposition home or self-care (01) ==
LOC: ED 18:07
DX: N39.0 Urinary tract infection, site not specified (principal); Z76.0 Encounter for issue of repeat prescription; I10 Essential (primary) hypertension; J45.909 Unspecified asthma, uncomplicated; Z91.040 Latex allergy status
CPT/HCPCS: 36415; 80053; 81001; 81025; 83690; 85025; 99283

== ENCOUNTER 2021-06-05 09:26 | Emergency (ER) | payer MEDICAID ==
[2021-06-05] MEDS ORDERED: ONDANSETRON 4 MG/2 ML INJ ONE (11:01)
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
[2021-06-05 12:34] VITALS: BP 124/78
== END 2021-06-05 12:33 | disposition home or self-care (01) ==
LOC: ED 09:26
DX: S80.852A Superficial foreign body, left lower leg, initial encounter (principal); Z91.040 Latex allergy status; X58.XXXA Exposure to other specified factors, initial encounter; Y93.89 Activity, other specified; Y92.89 Other specified places as the place of occurrence of the external cause; Y99.8 Other external cause status
CPT/HCPCS: 99282; J2405